=== PATIENT | female | born 1990 | race Caucasian/White ===

== ENCOUNTER 2016-08-04 21:07 | Inpatient (IN) | payer OTHER ==
[~2016-08-04] VITALS: Ht 154.9 cm; Wt 83.0 kg
[2016-08-04 22:02] LABS: BILIRUBIN NEGATIVE (NEGATIVE); BLOOD NEGATIVE Ery/uL (NEGATIVE); CLARITY CLEAR (CLEAR); COLOR YELLOW (YELLOW); GLUCOSE (U) NORMAL (NORMAL); KETONE (U) 2+ (MODERATE) mg/dL (NEGATIVE); LEUKOCYTES TRACE Leu/uL (NEGATIVE); NITRITE NEGATIVE (NEGATIVE); PROTEIN 1+ mg/dL (NEGATIVE); SPECIFIC GRAVITY 1.025 (1.001-1.030)
[2016-08-04 22:03] LABS: HGB 11.3 g/dl (12.5-16.0); MCH 27.9 pg (25.0-31.0); MCHC 33.2 g/dL (32.0-36.0); MPV 11.9 fL (6.0-9.5); RBC 4.05 M/uL (4.20-5.40); RDW 13.5 % (11.5-14.0); WBC 10.7 K/uL (4.0-10.5)
[2016-08-04 22:06] LABS: BACTERIA 2+; MUCOUS MODERATE; URINARY RBC RARE
[2016-08-04 22:19] LABS: ALBUMIN 3.6 g/dL (3.5-5.0); BILIRUBIN - TOTAL 0.4 mg/dL (0.1-1.0); CREATININE 0.5 mg/dL (0.5-1.0); GLOBULIN (CALCULATION) 2.9 g/dL (2.2-4.2); POTASSIUM 3.7 mmol/L (3.5-5.1); TOTAL PROTEIN 6.5 g/dL (6.4-8.3)
[2016-08-06 05:00] LABS: HCT 30.1 % (37.0-47.0); HGB 9.8 g/dl (12.5-16.0); MCH 27.8 pg (25.0-31.0); MCHC 32.6 g/dL (32.0-36.0); MCV 85.3 fL (78.0-100.0); MPV 11.7 fL (6.0-9.5); RBC 3.53 M/uL (4.20-5.40); RDW 13.5 % (11.5-14.0); WBC 10.7 K/uL (4.0-10.5)
== END 2016-08-07 13:12 | disposition home or self-care (01) | DRG 775 ==
LOC: FOB 21:07
PROVIDERS: ADMIT Obstetrics & Gynecology
PROC: 3E0P7GC Introduction of Other Therapeutic Substance into Female Reproductive, Via Natural or Artificial Opening (ICD-10-PCS; principal; 2016-08-04)
PROC: 4A1HXHZ Monitoring of Products of Conception, Cardiac Sound, External Approach (ICD-10-PCS; 2016-08-04)
PROC: 10E0XZZ Delivery of Products of Conception, External Approach (ICD-10-PCS; 2016-08-05)
PROC: 0KQM0ZZ Repair Perineum Muscle, Open Approach (ICD-10-PCS; 2016-08-05)
PROC: 10907ZC Drainage of Amniotic Fluid, Therapeutic from Products of Conception, Via Natural or Artificial Opening (ICD-10-PCS; 2016-08-05)
DX: O26.62 Liver and biliary tract disorders in childbirth (principal); K83.1 Obstruction of bile duct; E66.9 Obesity, unspecified; D62 Acute posthemorrhagic anemia; Z3A.37 37 weeks gestation of pregnancy; Z37.0 Single live birth; F41.8 Other specified anxiety disorders; O99.214 Obesity complicating childbirth; Z68.30 Body mass index [BMI] 30.0-30.9, adult; O99.824 Streptococcus B carrier state complicating childbirth; O99.02 Anemia complicating childbirth
CPT/HCPCS: 36415; 80053; 81001; 88307; J2540; J2916